=== PATIENT | female | born 1940 | race African-American/Black ===

== ENCOUNTER 2016-06-23 10:38 | Emergency (ER) | payer OTHER ==
[~2016-06-23] VITALS: Ht 162.6 cm; Wt 108.4 kg
[~2016-06-23 10:38] MED LIST: AMOXICILLIN 50500 MG PO; B12INJ IM; HYDROCODONE-AP1 EAC6 PO; IRBESARTAN-HCT1 EAC1 PO; LOSARTAN-HCTZ1 EAC1 PO; METFORMIN HCL500 MG PO; MOBIC15 MG PO; NAPROSYN500 MG PO; NORCO 5-325 TA1 EACH PO; NORFLEX100 MG PO; ONE-A-DAY WOMENS PO; PRAVACHOL40 MG PO; PREDNISONE 20 M20 MG PO; SYNTHROID100 MCG PO; VENTOLIN HFA 1818 GM INH; VITAMIN D1000 UNI1 PO; ZPAK PO
[2016-06-23] MEDS ORDERED: INVOKANA100 MG PO (10:42)
[2016-06-23] MEDS ORDERED: ZOCOR20 MG PO (10:43)
[2016-06-23] MEDS ORDERED: CELEBREX 200 M200 M1 PO (10:44)
[2016-06-23 13:01] VITALS: BP 140/90
== END 2016-06-23 13:02 ==
LOC: ER 10:38
DX: M13.862 Other specified arthritis, left knee (principal); I10 Essential (primary) hypertension; Z95.0 Presence of cardiac pacemaker; I49.5 Sick sinus syndrome

== ENCOUNTER → 2017-07-15 | Outpatient (CLI) | payer OTHER ==
[~2017-07-15] MED LIST changes: +CELEBREX 200 M200 M1 PO; +INVOKANA100 MG PO; +ZOCOR20 MG PO
== END ==
LOC: CAT 05:39
DX: M47.896 Other spondylosis, lumbar region (principal); M48.061 Spinal stenosis, lumbar region without neurogenic claudication; M51.26 Other intervertebral disc displacement, lumbar region

== ENCOUNTER → 2018-06-25 | Outpatient (CLI) | payer OTHER | LOC: ULTRA 11:22 | DX: I65.23 Occlusion and stenosis of bilateral carotid arteries (principal); R42 Dizziness and giddiness ==

== ENCOUNTER → 2019-04-02 | Outpatient (CLI) | payer OTHER | LOC: RAD 10:15 | DX: M47.816 Spondylosis without myelopathy or radiculopathy, lumbar region (principal); M16.11 Unilateral primary osteoarthritis, right hip; M25.78 Osteophyte, vertebrae ==

== ENCOUNTER → 2020-07-18 | Outpatient (CLI) | payer OTHER | LOC: SJCVCIMAG 07:54 | PROVIDERS: ATTEND Internal Medicine Cardiovascular Disease | DX: I07.1 Rheumatic tricuspid insufficiency (principal); R94.31 Abnormal electrocardiogram [ECG] [EKG]; I49.5 Sick sinus syndrome; I10 Essential (primary) hypertension; E78.2 Mixed hyperlipidemia; E03.9 Hypothyroidism, unspecified; E11.9 Type 2 diabetes mellitus without complications; Z95.0 Presence of cardiac pacemaker; Z88.8 Allergy status to other drugs, medicaments and biological substances; Z79.899 Other long term (current) drug therapy ==